=== PATIENT | female | born 2005 | race Caucasian/White ===

== ENCOUNTER 2024-11-28 12:30 | Outpatient (OUT) | payer OTHER, SELFPAY ==
--- OUTSIDE RECORDS SUMMARY | 2024-07-04 04:30 | XMS_ITS ---
Author Organization [facility] Address [address] [place] [address] Care Team Providers Care Retail Chain Store Area Supervisor Name Role Phone Kaushik Yao Primary Care Provider Arlene Dunn Unavailable [phone] REASON FOR VISIT FILLING Encounters Encounter Location Date Provider Diagnosis [facility] [address] [facility] [place] [address] 07/04/2024 Arlene Dunn Plan Of Treatment Next Appt Details Provider Name:Rose Espinosa , 01/24/2025 08:00:00 AM, [address], [place], [address], Progress Notes * MARY MATTSON LDOB: (19 yo F)Acc No.[id number]:07/04/2024 Patient: Diony MARY HEREDIA Provider: Baljinder Dunn :2005 A ge:18 Y S ex:Female Date:07/04/2024 Address:[address] [place], [place] [id number] Pcp:Kaushik Yao Subjective: * Chief Complaints: * 1 . FILLING. * Medical History: Objective: * Vitals: Assessment: Plan: * Treatment: * Images: * Electronic signature of Jadyn Dunn DMD on 11/28/2024 at 12:36 PM EDT Sign off status: Pending * Provider: Baljinder Dunn Date: 0 07/04/2024 Generated for Breanna amaro/Teddy/Eleanor on: 0 11/28/2024 12:36 PM EDT
--- OUTSIDE RECORDS SUMMARY | 2024-11-28 12:36 | XMS_ITS | Clinical Summary ---
Author Organization [facility] Address [address], [address] [place] [address] Care Team Providers Care Booking Officer Name Role Phone Unavailable Primary Care Provider Unavailabl e Allergies Active Allergy Reactions Criticality Noted Date Comments Amoxicillin Rash Low 05/31/2024 Medications acetaminophen (TYLENOL) 325 MG tablet Take 2 tablets by mouth every 6 hours as needed for Pain Active ibuprofen (ADVIL;MOTRIN) 400 MG tablet Take 0.5 tablets by mouth every 8 hours as needed for Pain or Fever 30 tablet 09/13/2018 Active ibuprofen (IBU) 800 MG tablet Take 1 tablet by mouth every 8 hours as needed for Pain 30 tablet 05/31/2024 Active Active Problems No known active problems Family History Medical History Relation Name Comments No Known Problems Father No Known Problems Mother Relation Name Status Comments Father Alive Mother Alive Social History Tobacco Use Types Packs/Day Years Used Date Smoking Tobacco: Never Smokeless Tobacco: Never Tobacco Cessation:Counseling Given: No AUDIT-C Answer Date Recorded Q1: How often do you have a drink containing alcohol? Never 05/31/2024 Q2: How many drinks containi ng alcohol do you have on a typical day when you are drinking? Patient does not drink Q3: How often do you have si x or more drinks on one occasion? Never 05/31/2024 Comments No Sex and Gender Information Value Date Recorded Sex Assigned at Not on file Legal Sex Female 3:23 PM EST Gender Identity Not on file Sexual Orientation Not on file Last Filed Vital Signs Vital Sign Reading Time Taken Comments Blood Pressure 116/69 05/31/2024 10:12 AM EST Pulse 71 05/31/2024 10:12 AM EST Temperature 36.6 C (97.8 F) 05/31/2024 10:12 AM EST Respiratory Rate 18 05/31/2024 10:12 AM EST Oxygen Saturation 99% 05/31/2024 10:12 AM EST Inhaled Oxygen Concentration - - Weight 53.6 kg (118 lb 3.2 oz) 09/13/2018 6:51 P M EDT Height 165.1 cm (5' 5 ) 09/13/2018 6:51 PM EDT Body Mass Index 19.67 09/13/2018 6:51 PM EDT Plan of Treatment Health Maintenance Due Date Last Done Comments Depression Screen 2015 Varicella vaccine (1 of 2 - 13+ 2-dose series) 07/14/2016 HIV screen 07/14/2018 HPV vaccine (1 - 3-dose series) 07/14/2018 Chlamydia/GC screen 2019 Meningococcal B vaccine (1 o f 2 - Standard) 2019 Hepatitis C screen 07/14/2021 DTaP/Tdap/Td vaccine (1 - Tdap) 07/14/2022 Hepatitis B vaccine (1 of 3 - 19+ 3-dose series) 07/14/2022 COVID-19 Vaccine (1 - 2023-2 5 season) 2023 Pap smear 07/14/2024 Flu vaccine (#1) 11/24/2024 Hepatitis A vaccine Aged Out No longe r eligible based on patient's age to complete this topic Hib vaccine Aged Out No longer eligi ble based on patient's age to complete this topic Meningococcal (ACWY) vaccine Aged Out No longer eligible based on patient's age to complete this topic Pneumococcal 0-49 years Vaccine Aged Out No longer eligible based on patient's age to complete this topic Polio vaccine Aged Out No longer elig ible based on patient's age to complete this topic Insurance [facility]
--- OUTSIDE RECORDS SUMMARY | 2024-11-28 12:36 | XMS_ITS | Clinical Summary ---
Author Organization [facility] Address [address] [place] [address] Care Team Providers Care Transfusion Aide Name Role Phone Abel Garcia MD Primary Care Provider [phone] Marina Camara FOOD OPERATIONS MANAGER Unavailable [phone] Allergies Active Allergy Reactions Criticality Noted Date Comments Amoxicillin Hives 09/07/2024 Morphine Rash 09/07/2024 Medications tretinoin (RETIN-A) 0.025 % gelIndications: Insulin resistance,Irre gular periods 1 application daily at bedtime. 7 Active Active Problems No known active problems Encounters Date Type Department Care Team Description 09/21/2024 Telephone Rheumatology [address] [place] [address] Renee Lorenzana DO 09/19/2024 2:10 PM EDT [facility] Rheumatology [address] [place] [address] Renee Lorenzana DO Rash and nonspecific skin eruption (Primary Dx); Positive SON (antinuclear antibody) 09/19/2024 Travel 09/14/2024 Patient [facility] HB-[address] [place] [address] Marina Collado RPh At your next appointment, choose [facility]. 09/07/2024 1:10 PM EDT Office Visit Rheumatology [address] [place] [address] Renee Lorenzana DO Rash and nonspecific skin eruption (Primary Dx); Positive SON (antinuclear antibody) 09/07/2024 Telephone Rheumatology [address] [place] [address] Renee Lorenzana DO 09/07/2024 Travel from Last 3 Months Family History Medical History Relation Comments Rheumatologic disease No Family History Social History Tobacco Use Types Packs/Day Years Used Date Smoking Tobacco: Passive Smo ke Exposure - Never Smoker Comments:mother smokes outsi de PHQ-2 Answer Date Recorded PHQ-2 score 1 09/19/2024 Area Deprivation Index Answer Date Darrius rded National Score (1-100), lower number is lower ri sk 76 09/07/2024 State Score (1-10), lower number is lower risk 6 09/07/2024 Data from: https://www.neigh borhoodatlas.medicine.[facility]/. Last address used for calculation [address] [facility] 09/07/2024 Comments Unknown Sex and Gender Information Value Date Recorded Sex Assigned at Not on file Legal Sex Female 4:59 PM EST Gender Identity Not on file Sexual Orientation Not on file Last Filed Vital Signs Vital Sign Reading Time Taken Comments Blood Pressure 105/65 09/07/2024 1:13 PM EDT Pulse 76 09/07/2024 1:13 PM EDT Temperature 36.8 C (98.2 F) 03/12/2017 10:12 AM EST Respiratory Rate - - Oxygen Saturation - - Inhaled Oxygen Concentration - - Weight 87.6 kg (193 lb 1.6 oz) 09/07/2024 1:13 P M EDT Height 165.2 cm (5' 5.04 ) 09/07/2024 1:13 PM ED T Body Mass Index 32.09 09/07/2024 1:13 PM EDT Plan of Treatment Health Maintenance Due Date Last Done Comments Peds To Adult Transition Ini tial Discussion 2015 HPV Vaccine (2 - 2-dose series) 06/18/2016 6 Peds To Adult Transition Nayeli ual Assessment 07/14/2017 Meningococcal B Vaccine (1 o f 2 - Standard) 2019 Anxiety Screening 07/14/2021 Chlamydia Screening (18-24) 07/14/2021 Depression Screening 07/14/2021 GC (Gonorrhea) Screening (18-24) 07/14/2021 HIV Screening 07/14/2021 Hepatitis C Screening 07/14/2021 Cervical Cancer Screening 07/14/2024 Influenza Vaccine (#1) 2024 DTaP,Tdap,Td Vaccine (4 - Td or Tdap) 12/16/2025 12/17/2015, 11/13/2005, 01/20/2005 Hepatitis B Vaccine Completed 11/13/2005, 01/20/2005, 2003 Procedures Procedure Name Priority Date/Time Associated Diagnosis Comments EXTERNAL LAB 10/11/2024 2:47 PM EDT CHROMATIN ANTIBODY Routine 09/07/2024 1: 59 PM EDT Rash and nonspecific skin eruption Positive SON (antinuclear antibody) RIBOSOMAL MASTER WELDER AB BLD Routine 09/07/2024 1:59 PM EDT Rash and nonspecific skin eruption Positive SON (antinuclear antibody) DENITA-1 AB Routine 09/07/2024 1:59 PM EDT Rash and nonspecific skin eruption Positive SON (antinuclear antibody) SCLERODERMA IGG AB Routine 09/07/2024 1: 59 PM EDT Rash and nonspecific skin eruption Positive SON (antinuclear antibody) ANTI-CENTROMERE AB Routine 09/07/2024 1: 59 PM EDT Rash and nonspecific skin eruption Positive SON (antinuclear antibody) ANTI SSB BLD Routine 09/07/2024 1:59 PM EDT Rash and nonspecific skin eruption Positive SON (antinuclear antibody) ANTI SSA BLD Routine 09/07/2024 1:59 PM EDT Rash and nonspecific skin eruption Positive SON (antinuclear antibody) MASTER WELDER ANTIBODY BLOOD Routine 09/07/2024 1: 59 PM EDT Rash and nonspecific skin eruption Positive SON (antinuclear antibody) SALGADO IGG AB Routine 09/07/2024 1:59 PM EDT Rash and nonspecific skin eruption Positive SON (antinuclear antibody) SED RATE WESTERGREN Routine 09/07/2024 1 :59 PM EDT Rash and nonspecific skin eruption Positive SON (antinuclear antibody) C-REACTIVE PROTEIN (CRP) Routine 09/07/2024 1:59 PM EDT Rash and nonspecific skin eruption Positive SON (antinuclear antibody) C4 COMPLEMENT BLD Routine 09/07/2024 1:5 9 PM EDT Rash and nonspecific skin eruption Positive SON (antinuclear antibody) C3 COMPLEMENT BLD Routine 09/07/2024 1:5 9 PM EDT Rash and nonspecific skin eruption Positive SON (antinuclear antibody) DNA ANTIBODY DS BLD Routine 09/07/2024 1 :59 PM EDT Rash and nonspecific skin eruption Positive SNO (antinuclear antibody) ANTI DEREK ID Routine 09/07/2024 1:59 PM EDT Rash and nonspecific skin eruption Positive SON (antinuclear antibody) from Last 3 Months Results * EXTERNAL LAB (10/11/2024 2:47 PM EDT) us External Provider PA-C LABORATORY Final Res ult * CHROMATIN ANTIBODY (09/07/2024 1:59 PM EDT) CHROMATIN AB QUAL Negative Negative 09/08/2024 11:35 AM EDT [facility] Chromatin Antibody <0.2 <1.0 AI 09/08/2024 11:35 AM EDT [facility] Comment:Test Methodology: Mu ltiplex flow immunoassay. Blood BLOOD SPECIMEN / Unknown Venipuncture / Unknown 09/07/2024 1:59 PM EDT 09/07/2024 2:00 PM EDT Narrative [facility] - 09/08/2024 11:35 AM EDT Anti-chromatin antibody is used as an aid in diagnosis of systemic lupus erythematosus. Clinical correlation is required. Test Methodology: Multiplex flow immunoassay. us Renee Lorenzana DO LABORATORY Final Resul t [facility] [address] [place] [address], [place] * RIBOSOMAL MASTER WELDER AB BLD (09/07/2024 1:59 PM EDT) Ribosomal MASTER WELDER Qualitative Negative Negative 09/08/2024 11:35 AM EDT [facility] Comment: Anti-Ribosomal RNA (Ribosomal P) antibody is used as an aid in diagnosis of systemic autoimmune diseases especially systemic lupus erythematosus and mixed connective tissue disease. Cross-reactivity with Anti-salgado antibody is not uncommon. Clinical correlation is required. Test Methodology: Multiplex flow immunoassay. Ribosomal MASTER WELDER <0.2 <1.0 AI 09/08/2024 11:35 AM EDT [facility] Blood BLOOD SPECIMEN / Unknown Venipuncture / Unknown 09/07/2024 1:59 PM EDT 09/07/2024 2:00 PM EDT Renee Lorenzana DO LABORATORY Final Resul t [facility] [place] [address], [place] * (ABNORMAL) MASTER WELDER ANTIBODY BLOOD (09/07/2024 1:59 PM EDT) MASTER WELDER Antibody QUAL Positive(A ) Negative 09/08/2024 11:35 AM EDT [facility] MASTER WELDER Antibody 1.1(H) <1.0 AI 09/08/2024 11:35 AM EDT [facility] Blood BLOOD SPECIMEN / Unknown Venipuncture / Unknown 09/07/2024 1:59 PM EDT 09/07/2024 2:00 PM EDT Narrative [facility] - 09/08/2024 11:35 AM EDT Anti-MASTER WELDER antibody is used as an aid in diagnosis of systemic autoimmune diseases especially systemic lupus erythematosus and mixed connective tissue disease. Cross-reactivity with Anti-salgado antibody is not uncommon. Clinical correlation is required. Test Methodology: Multiplex flow immunoassay. Renee Lorenzana DO LABORATORY Final Resul t Performing Organization Address [facility] Co de Phone Number [facility] [address] [place] [address], [place] * SALGADO IGG AB (09/07/2024 1:59 PM EDT) SM Antibody Qual Negative Negative 09/09/19 11:35 AM EDT [facility] Comment: Anti-Sm (Salgado) antibody is used as an aid in diagnosis of systemic lupus erythematosus and its presence is associated with renal disease. A negative result cannot rule out systemic lupus erythematosus. Clinical correlation is required. Test Methodology: Multiplex flow immunoassay. SM Antibody <0.2 <1.0 AI 09/08/2024 11:35 AM EDT [facility] Blood BLOOD SPECIMEN / Unknown Venipuncture / Unknown 09/07/2024 1:59 PM EDT 09/07/2024 2:00 PM EDT Renee Lorenzana DO LABORATORY Final Resul t Performing Organization Address [facility] de Phone Number [facility] [address] [place] [address], [place] * SEDIMENTATION RATE, WESTERGREN (09/07/2024 1:59 PM EDT) Sed Rate, Westergren 8 0 - 20 mm/hr 09/07/2024 11:25 PM EDT [facility] Blood BLOOD SPECIMEN / Unknown Venipuncture / Unknown 09/07/2024 1:59 PM EDT 09/07/2024 2:00 PM EDT Renee Lorenzana DO LABORATORY Final Resul t Performing Organization Address City/[facility] Co de Phone Number [facility] [address] [place] [phone], [place] * SCLERODERMA IGG AB (09/07/2024 1:59 PM EDT) Scleroderma Ab Qual Negative Negative 09/08/2024 11:35 AM EDT [facility] Scleroderma Ab, IgG <0.2 <1.0 AI 09/08/2024 11:35 AM EDT [facility] Comment:Scl-70/Scleroderma a ntibody test is used as an aid in diagnosis of systemic sclerosis especially the diffuse cutaneous form. A negative result cannot rule out systemic sclerosis. The final interpretation should consider clinical picture and other test results such as anti-centromere antibody. Test Methodology: Multiplex flow immunoassay. Blood BLOOD SPECIMEN / Unknown Venipuncture / Unknown 09/07/2024 1:59 PM EDT 09/07/2024 2:00 PM EDT [employer] DO LABORATORY Final Resul t Performing Organization Address [facility] Phone Number [facility] [address] [place], [place] [id number], [place] * DENITA-1 AB (09/07/2024 1:59 PM EDT) DENITA 1 ANTIBODY QUAL Negative Negative 2024 11:35 AM EDT [facility] Comment: Anti-DENITA-1 antibody is used as an aid in diagnosis of polymyositis and dermatomyositis especially with pulmonary involvement. A negative result cannot rule out polymyositis or dermatomyositis. Clinical correlation is required. Test Methodology: Multiplex flow immunoassay. Denita 1 Antibody <0.2 <1.0 AI 09/08/2024 11:35 AM EDT [facility] Blood BLOOD SPECIMEN / Unknown Venipuncture / Unknown 09/07/2024 1:59 PM EDT 09/07/2024 2:00 PM EDT [employer] DO LABORATORY Final Resul t Performing Organization Address [facility] Co de Phone Number [facility] [address] [place] [place] [phone], [place] * DNA ANTIBODY DS BLD (09/07/2024 1:59 PM EDT) DNA Antibody 33 <=200 IU/mL 09/08/2024 3:12 PM EDT [facility] Comment: Negative: <200 IU/mL Equivocal: 201-300 IU/mL Moderate Positive: 301-800 IU/mL Strong Positive: >801 IU/mL DNA Antibody Qualitative Interpretation Negative Negative 09/08/2024 3:12 PM EDT [facility] Blood BLOOD SPECIMEN / Unknown Venipuncture / Unknown 09/07/2024 1:59 PM EDT 09/07/2024 2:00 PM EDT Narrative [facility] - 09/08/2024 3:12 PM EDT This test is used as an aid in diagnosis of systemic lupus erythematous in patients with positive anti-nuclear antibody (SON) test result. It may also be used for prognostication and monitoring response to treatment where clinically warranted. Results were obtained with the QUANTA Lite dsDNA JOHN. Double-stranded DNA values obtained with different manufacturers' assay methods should not be used interchangeably. Renee Lorenzana DO LABORATORY Final Resul t Performing Organization Address City/[facility]/ZIP Co de Phone Number [facility] [address] [place] [address], [place] * C4 COMPLEMENT (09/07/2024 1:59 PM EDT) [facility] Signature C4 Complement 25 13 - 46 mg/dL 09/08/2024 5:28 PM EDT [facility] Blood BLOOD SPECIMEN / Unknown Venipuncture / Unknown 09/07/2024 1:59 PM EDT 09/07/2024 2:00 PM EDT Renee Lorenzana DO LABORATORY Final Resul t Performing Organization Address [facility]/ZIP Co de Phone Number [facility] [address] [place] [address], [place] * C3 COMPLEMENT (09/07/2024 1:59 PM EDT) C3 Complement 150 86 - 166 mg/dL 09/08/2024 5:28 PM EDT [facility] Blood BLOOD SPECIMEN / Unknown Venipuncture / Unknown 09/07/2024 1:59 PM EDT 09/07/2024 2:00 PM EDT Renee Locnatalie DO LABORATORY Final Resul t Performing Organization Address City/[facility]/ZIP Co de Phone Number [facility] [address] [place] [address], * C-REACTIVE PROTEIN (09/07/2024 1:59 PM EDT) CRP 0.5 <0.9 mg/dL 09/08/2024 5:28 PM EDT [facility] Blood BLOOD SPECIMEN / Unknown Venipuncture / Unknown 09/07/2024 1:59 PM EDT 09/07/2024 2:00 PM EDT Renee Salomón DO LABORATORY Final Resul t Performing Organization Address [facility] de Phone Number [facility] [address] [place] [address], * ANTI-CENTROMERE AB (09/07/2024 1:59 PM EDT) CENTROMERE AB QUAL Negative Negative 09/08/2024 11:35 AM EDT [facility] Centromere Ab <0.2 <1.0 AI 09/08/2024 11:35 AM EDT [facility] Comment: Anti-centromere antibody is used as in aid in diagnosis of systemic sclerosis. Clinical correlation is required. Test Methodology: Multiplex flow immunoassay. Blood BLOOD SPECIMEN / Unknown Venipuncture / Unknown 09/07/2024 1:59 PM EDT 09/07/2024 2:00 PM EDT Renee Lorenzana DO LABORATORY Final Resul t Performing Organization Address City/[facility] Co de Phone Number [facility] [address] [place] [phone], [place] * ANTI SSB BLD (09/07/2024 1:59 PM EDT) SSB Antibody <0.2 <1.0 AI 09/08/2024 11:35 AM EDT [facility] Comment: Anti-SSB (anti-La) antibody is used as an aid in diagnosis of a variety of systemic autoimmune diseases, especially for Sjogren's syndrome and systemic lupus erythematosus. Clinical correlation is required. Test Methodology: Multiplex flow immunoassay. SSB Antibody Qual Negative Negative 09/08/2024 11:35 AM EDT [facility] Blood BLOOD SPECIMEN / Unknown Venipuncture / Unknown 09/07/2024 1:59 PM EDT 09/07/2024 2:00 PM EDT Renee Salomón DO LABORATORY Final Resul t Performing Organization Address [facility] Co de Phone Number [facility] [address] [place] [place] [phone], [place] * ANTI SSA BLD (09/07/2024 1:59 PM EDT) SSA Antibody Qual Negative Negative 09/08/2024 11:35 AM EDT [facility] SSA Antibody IgG <0.2 <1.0 AI 09/08/2024 11:35 AM EDT [facility] Comment:Test Methodology: Mu ltiplex flow immunoassay. Blood BLOOD SPECIMEN / Unknown Venipuncture / Unknown 09/07/2024 1:59 PM EDT 09/07/2024 2:00 PM EDT Narrative [facility] - 09/08/2024 11:35 AM EDT Anti-SSA (anti-Ro) antibody is used as an aid in diagnosis of a variety of systemic autoimmune diseases, Sjogren's syndrome among others. Clinical correlation is required. Test Methodology: Multiplex flow immunoassay. Renee LocAvidbots DO LABORATORY Final Resul t Performing Organization Address [facility] Co de Phone Number [facility] [address] [phone] [place] [address], [place] from Last 3 Months Insurance [facility] MEDICAID Care Teams Transfusion Aide Relationship Specialty Start Date End Date Abel Garcia MD [address] [place] [address] PCP - General Pediatrics 03/12/17 Marina Camara, FOOD OPERATIONS MANAGER [address] [address] Dermatology 08/31/24
--- OUTSIDE RECORDS SUMMARY | 2024-11-28 12:36 | XMS_ITS | Encounter Summary ---
Author Organization [facility] Address [address] [place] [address] Care Team Providers Care Market Maker Name Role Phone Unallocated, [facility] Encounter Details Date Type Department Care Team (Late Contact Info) Description 02/02/2023 Abstract KAYLAN JONAS [address] [facility] [address] [place] [address] Ariane Tucker DO [address] [facility] [address] [place] [address] Social History Tobacco Use Types Packs/Day Years Used Date Smoking Tobacco: Never Assessed Comments Unknown Sex and Gender Information Value Date Recorded Sex Assigned at Female 02/03/2023 10:08 PM EDT Legal Sex Female 10:43 AM EDT Gender Identity Female 02/03/2023 10:08 PM EDT Sexual Orientation Straight 02/03/2023 10 :08 PM EDT documented as of this encounter Plan of Treatment Upcoming Encounters Date Type Department Care Team (Late Contact Info) Description 12/18/2024 8:40 AM EDT Office Visit KAYLAN JONAS [address] [place] [id number] Tabitha Benítez PA [address] [place], [place] [id number] documented as of this encounter Visit Diagnoses Not on filedocumented in this encounter Care Teams Market Maker Relationship Specialty Start Date End Date Unallocated, [place] [address] PCP - General 02/03/23 documented as of this encounter
--- OUTSIDE RECORDS SUMMARY | 2024-11-28 12:36 | XMS_ITS | Clinical Summary ---
Author Organization [facility] Address [address] [place] [address] Care Team Providers Care Android Developer Name Role Phone Unallocated, Noms Provider Primary Care Provi chelsea Allergies Active Allergy Reactions Criticality Noted Date Comments Amoxicillin Hives,Rash High 02/03/2023 Other Reaction(s): Hives Morphine Rash Low 09/07/2024 Medications Zoloft 25 MG tablet Take 50 mg by mouth 11/01/2024 Active busPIRone (Buspar) 5 MG tablet Take 5 mg by mouth 11/01/2024 Active Active Problems No known active problems Encounters Date Type Department Care Team Description 11/08/2024 2:10 PM EDT Consult [facility] [address] [place] [address] Pb Robison DO Pre-op examination; Pelvic pain; Bilateral ovarian cysts 10/09/2024 2:30 PM EDT Ancillary Procedure [facility] [address] [place] [address] Pelvic pain in female 10/02/2024 2:25 PM EDT Office Visit [facility] [address] [place] [address] Marina Camara APRN-BINH Idiopathic urticaria (Primary Dx) 10/02/2024 Bamboo flowsheet [facility] [address] [place] [address] Marina Camara APRN-BINH 10/02/2024 Travel 09/28/2024 8:40 AM EDT Office Visit [facility] [address] [place] [phone] Pb Robison, Pelvic pain; Pelvic pain in female 09/28/2024 External Result Encounter [facility] External Department Unsolicited Pb Robison, DO 09/28/2024 Bamboo flowsheet [facility] [address] [place] [address] Pb Robison, DO 09/20/2024 10:30 AM EDT Office Visit [facility] [place] [facility] [address] [place] [phone] Ariane Tucker, Encounter for gynecological examination without abnormal finding (Primary Dx); Screening for malignant neoplasm of cervix; PCOS (polycystic ovarian syndrome); Irregular menses 09/20/2024 Bamboo flowsheet [facility] [place] [facility] [address] [place] [phone] Ariane Tucker, 09/20/2024 Travel 09/04/2024 Telephone [facility] [place] [facility] [address] [place] [phone] Leesa Lagos LPN Results 08/29/2024 2:10 PM EDT Office Visit [facility] [place] [facility] [address] [place] [phone] Yenni Puga PA Rash and other nonspecific skin eruption (Primary Dx); Encounter for removal of sutures 08/29/2024 Travel from Last 3 Months Family History Medical History Relation Name Comments Diabetes Maternal Grandmother Gaurav Mather Hypertension Maternal Grandmother Gaurav Mather Stroke Mother's Brother Wolfgang Mather Stroke Mother's Sister Arlyn Knowles Breast cancer Paternal Grandmother Josiane Meyer Migraines Sister Loni Davilagomery Relation Name Status Comments Maternal Grandmother Gaurav Mather Mother's Brother Wolfgang Mather Mother's Sister Arlyn Benson Paternal Grandmother Josiane Leporati Alive Sister Loni Garcia Alive Social History Tobacco Use Types Packs/Day Years Used Date Smoking Tobacco: Never Smokeless Tobacco: Never Comments No Sex and Gender Information Value Date Recorded Sex Assigned at Female 02/03/2023 10:08 PM EDT Legal Sex Female 10:43 AM EDT Gender Identity Female 02/03/2023 10:08 PM EDT Sexual Orientation Straight 02/03/2023 10 :08 PM EDT Last Filed Vital Signs Vital Sign Reading Time Taken Comments Blood Pressure 118/72 11/08/2024 2:05 PM EDT Pulse - - Temperature - - Respiratory Rate - - Oxygen Saturation - - Inhaled Oxygen Concentration - - Weight 89.4 kg (197 lb) 11/08/2024 2:05 PM EDT Height 165.1 cm (5' 5 ) 11/08/2024 2:05 PM EDT Body Mass Index 32.78 11/08/2024 2:05 PM EDT Plan of Treatment Upcoming Encounters Date Type Department Care Team (Late st Contact Info) Description 12/18/2024 8:40 AM EDT Office Visit [facility] [address] [place] [address] Tabitha Benítez PA [address] [place] [address] Health Maintenance Due Date Last Done Comments Influenza Vaccine (#1) 2024 Procedures Procedure Name Priority Date/Time Associated Diagnosis Comments US PELVIC COMPLETE W/ TV Routine 10/09/2024 3:13 PM EDT Pelvic pain in female RECURRENT VAGINITIS (HTRX) Routine 09/28/2024 4:06 PM EDT POCT , URINE Routine 09/28/2024 12:19 PM EDT Pelvic pain in female POCT URINALYSIS DIPSTICK Routine 09/28/2024 12:19 PM EDT Pelvic pain in female IGP, RFX APTIMA HPV ASCU Routine 09/20/2024 12:00 AM EDT Screening for malignant neoplasm of cervix SON BY IFA, REFLEX TO TITER AND PATTERN Routine 08/30/2024 1:04 PM EDT HERNAN STAINING PATTERNS Routine 08/29/2024 2:50 PM EDT SON BY IFA, REFLEX TO TITER AND PATTERN Routine 08/29/2024 2:50 PM EDT Rash and other nonspecific skin eruption from Last 3 Months Results * US Pelvis w/ TV (10/09/2024 3:13 PM EDT) Anatomical Region Laterality Modality Pelvis Ultrasound 10/10/2024 8:14 AM EDT Narrative 10/10/2024 8:14 AM EDT EXAM: US PELVIC COMPLETE W/ TV HISTORY: Pelvic pain, PCOS, irregular length between periods. COMPARISON: None available. TECHNIQUE: Two-dimensional transabdominal grayscale ultrasound imaging of the pelvis was performed. Color flow Doppler imaging of the ovaries was also performed. Transvaginal was performed. FINDINGS: UTERUS 6.1 x 3.2 x 4.7 cm The uterus is anteverted in position and demonstrates a normal, homogeneous echotexture. ENDOMETRIUM 0.9 cm The endometrium demonstrates a normal, homogeneous echotexture. RIGHT OVARY 4.0 x 2.5 x 3.9 cm The right ovary demonstrates a normal echotexture with follicles. The ovarian volume is 20 mL. There is normal color Doppler flow. LEFT OVARY The left ovary is not visualized. No fluid is present within the cul-de-sac. IMPRESSION: 1. Unremarkable ultrasound of the pelvis. 2. Normal color Doppler flow within the right ovary, the left ovary was not visualized. Interpreted by: Electronically signed by NAPOLEON GARRIDO II, MD, PHD at 10-Oct-2024 08:13:26 AM [facility] Procedure Note Napoleon Garrido MD - 10/10/2024 EXAM: US PELVIC COMPLETE W/ TV HISTORY: Pelvic pain, PCOS, irregular length between periods. COMPARISON: None available. TECHNIQUE: Two-dimensional transabdominal grayscale ultrasound imaging ofthe pelvis was performed. Color flow Doppler imaging of the ovaries wasalso performed. Transvaginal was performed. FINDINGS: UTERUS 6.1 x 3.2 x 4.7 cm The uterus is anteverted in position and demonstrates a normal,homogeneous echotexture. ENDOMETRIUM 0.9 cm The endometrium demonstrates a normal, homogeneous echotexture. RIGHT OVARY 4.0 x 2.5 x 3.9 cm The right ovary demonstrates a normal echotexture with follicles. Theovarian volume is 20 mL. There is normal color Doppler flow. LEFT OVARY The left ovary is not visualized. No fluid is present within the cul-de-sac. IMPRESSION: 1. Unremarkable ultrasound of the pelvis. 2. Normal color Doppler flow within the right ovary, the left ovary wasnot visualized. Interpreted by: Electronically signed by NAPOLEON GARRIDO II, MD, PHD 08:13:26 AM [facility] us Pb Ricki DO [facility] US PROCEDURES Final Result * RECURRENT VAGINITIS (HTRX) (09/28/2024 4:06 PM EDT) Pathologist [facility] ATOPOBIUM VAGINAE 0.000 19.961 - 24.689 ppm 09/29/2024 6:34 AM EDT [facility] ATOPOBIUM VAGINAE Not Detected 19.961 - 24.689 ppm 09/29/2024 6:34 AM EDT [facility] BVAB 2,3 (BACTERIAL VAGINOSIS ASSOCIATED BACTERIA 2, 3); MOBILUNCUS SPP 0.000 19.961 - 24.689 ppm 09/29/2024 6:34 AM EDT [facility] BVAB 2,3 (BACTERIAL VAGINOSIS ASSOCIATED BACTERIA 2, 3); MOBILUNCUS SPP Not Detected 19.961 - 24.689 ppm 09/29/2024 6:34 AM EDT [facility] ISMAEL ALBICANS, PARAPSILOSIS, TROPICALIS 0.000 19.961 - 30.770 ppm 09/29/2024 6:34 AM EDT [facility] ISMAEL ALBICANS, PARAPSILOSIS, TROPICALIS Not Detected 19.961 - 30.770 ppm 09/29/2024 6:34 AM EDT [facility] ISMAEL GLABRATA 0.000 23.000 - 32.138 ppm 09/29/2024 6:34 AM EDT [facility] ISMAEL GLABRATA Not Detected 23.000 - 32.138 ppm 09/29/2024 6:34 AM EDT [facility] ISMAEL KRUSEI 0.000 23.000 - 32.271 ppm 09/29/2024 6:34 AM EDT [facility] ISMAEL KRUSEI Not Detected 23.000 - 32.271 ppm 09/29/2024 6:34 AM EDT [facility] CHLAMYDIA TRACHOMATIS 0.000 23.000 - 31.467 ppm 09/29/2024 6:34 AM EDT [facility] CHLAMYDIA TRACHOMATIS Not Detected 23.000 - 31.467 ppm 09/29/2024 6:34 AM EDT [facility] GARDNERELLA VAGINALIS 0.000 19.961 - 24.689 ppm 09/29/2024 6:34 AM EDT [facility] GARDNERELLA VAGINALIS Not Detected 19.961 - 24.689 ppm 09/29/2024 6:34 AM EDT [facility] MEGASPHAERA (TYPES 1, 2) 0.000 19.961 - 24.689 ppm 09/29/2024 6:34 AM EDT [facility] MEGASPHAERA (TYPES 1, 2) Not Detected 19.961 - 24.689 ppm 09/29/2024 6:34 AM EDT [facility] NEISSERIA GONORRHOEAE 0.000 23.000 - 32.117 ppm 09/29/2024 6:34 AM EDT [facility] NEISSERIA GONORRHOEAE Not Detected 23.000 - 32.117 ppm 09/29/2024 6:34 AM EDT [facility] TRICHOMONAS VAGINALIS 0.000 23.000 - 32.119 ppm 09/29/2024 6:34 AM EDT [facility] TRICHOMONAS VAGINALIS Not Detected 23.000 - 32.119 ppm 09/29/2024 6:34 AM EDT [facility] MYCOPLASMA GENITALIUM 0.000 19.961 - 24.689 ppm 09/29/2024 6:34 AM EDT [facility] MYCOPLASMA GENITALIUM Not Detected 19.961 - 24.689 ppm 09/29/2024 6:34 AM EDT [facility] 09/28/2024 4:06 PM EDT 09/29/2024 1:33 AM EDT VUELOGICo DO LAB BLOOD ORDERABLES Final Resul t [facility] [address] [place] [address] * POCT , urine manually resulted (09/28/2024 12:19 PM EDT) Preg Test, Ur Negative Negative Urine 09/28/2024 12:1 9 PM EDT FPW Entepriseso DO POINT OF CARE TEST ENTER/EDIT OR DERABLES Final Result * POCT urinalysis dipstick manually resulted (09/28/2024 12:19 PM EDT) Color, UA Yellow Clarity, UA Clear Glucose, UA Negative Negative - 2000(110) ++++ mg/dL Bilirubin, UA Negative Negative - 4(70) +++ mg/dL Ketones, UA Negative Negative - 160(16) ++++ mg/dL Spec Grav, UA 1.020 1 - 1.03 Blood, UA Negative Negative - 50 Michael/mcL pH, UA 5.5 5 - 9 Protein, UA Negative Negative - 1999(20) ++++ mg/dL Urobilinogen, UA 1.0 0.2 - 12 mg/dL Leukocytes, UA Negative Negative - 500+++ Anel/mcL Nitrite, UA Negative Negative - Positive Urine 09/28/2024 12:1 9 PM EDT Pb Robison DO POINT OF CARE TEST ENTER/EDIT OR DERABLES Final Result * IGP, RFX APTIMA HPV ASCU (09/20/2024 12:00 AM EDT) Diagnosis: Comment [facility] Comment:NEGATIVE FOR INTRAEP ITHELIAL LESION OR MALIGNANCY. Specimen Adequacy: Comment [facility] Comment: Satisfactory for evaluation. Endocervical and/or squamous metaplastic cells (endocervical component) are present. Clinician Provided ICD10: Comment [facility] Comment:Z12.4 Performed By: Comment [facility] Comment:Socrates Howard tologceferino (ASCP) Cyto Comments . [facility] Note: Comment [facility] Comment: The Pap smear is a screening test designed to aid in the detection of premalignant and malignant conditions of the uterine cervix. It is not a diagnostic procedure and should not be used as the sole means of detecting cervical cancer. Both false-positive and false-negative reports do occur. Test Methodology: Comment [facility] Comment: This liquid based ThinPrep(R) pap test was screened with the use of an image guided system. . Comment [facility] Comment: The HPV DNA reflex criteria were not met with this specimen result therefore, no HPV testing was performed. 09/20/2024 09/21/2024 Narrative [facility] - 09/24/2024 3:06 PM EDT [facility]formed at: [facility] [address] [place] [id number] [employer] Supervisor: Clifton Beatty MD, Phone: [phone] Performed at: 02 - [address] [id number] [employer] Supervisor: Preethi Espinoza MD, Phone: [phone] Specimen Comment: No. of containers..01 ThinPrep Vial us Ariane Tcuker DO LAB BLOOD ORDERABLES Final Result [facility] * SON by IFA, Reflex to Titer and Pattern (08/30/2024 1:04 PM EDT) Only the most recent of2 resultswithin the time period is included. SON BY IFA RFX TITER/PATTERN Negative [facility] Comment: Negative <1:80 Borderline 1:80 Positive >1:80 ICAP nomenclature: AC-0 For more information about Hep-2 cell patterns use ANApatterns.org, the official website for the International Consensus on Antinuclear Antibody (SON) Patterns (ICAP). 08/30/2024 1:04 PM EDT 08/30/2024 Comment:BLOOD, VENOUS Narrative [facility] - 09/01/2024 8:07 AM EDT Performed at: 01 - [facility] [address] [id number] [employer] Supervisor: Arvind Patel PhD, Phone: [phone] Marina Camara MUSEUM SECURITY CHIEF-METER REPAIRER LAB BLOOD ORDERABLES F inal Result [facility] * (ABNORMAL) HERNAN STAINING PATTERNS (08/29/2024 2:50 PM EDT) HOMOGENEOUS PATTERN 1:160(H) [facility] Comment:ICAP nomenclature: A C-1 NOTE: Comment [facility] Comment: Pattern Potential Disease Association Homogeneous Systemic Lupus Erythematosus, Drug Induced Systemic Lupus Erythematosus, Chronic Autoimmune hepatitis, Juvenile Idiopathic Arthritis Speckled Sjogren Syndrome, Systemic Lupus Erythematosus, Subacute Cutaneous Lupus, Lupus, Congenital Heart Block, Mixed Connective Tissue Disease, Scleroderma-diffuse, Scleroderma-Autoimmune Myositis Overlap Syndrome, Systemic Lupus Fbhvupupnlyhy-Swxqtkgvaub-Xlupxkwyct Myositis Overlap Syndrome, Systemic Autoimmune Rheumatic Disease, Undifferentiated Connective Tissue Disease Nucleolar Systemic Sclerosis, Scleroderma-Autoimmune Myositis Overlap Syndrome, Sjogren Syndrome, Raynaud phenomenon, Pulmonary Arterial Hypertension, Systemic Autoimmune Rheumatic Disease, Cancer Centromere Scleroderma-CREST, Limited Cutaneous SSc, Raynaud's Phenomenon, Primary Biliary Cholangitis Nuclear Dot Primary Biliary Cholangitis Nuclear Primary Biliary Cholangitis, Autoimmune Membrane Hepatitis/Liver disease, Systemic Autoimmune Rheumatic Disease, Autoimmune Cytopenias, Linear Scleroderma, Antiphospholipid Syndrome 08/29/2024 2:50 PM EDT 08/29/2024 Narrative [facility] - 08/31/2024 2:07 PM EDT Performed at: 01 - [facility] [address] [id number] [employer] Supervisor: Arvind Patel PhD, Phone: [phone] us Marina Camara MUSEUM SECURITY CHIEF-METER REPAIRER LAB BLOOD ORDERABLES F inal Result [facility] from Last 3 Months Insurance [employer] Care Teams Android Developer Relationship Specialty Start Date End Date Unallocated, Noms Provider, [address] [place] [address] PCP - General 02/03/23
--- OUTSIDE RECORDS SUMMARY | 2024-11-28 12:36 | XMS_ITS | Clinical Summary ---
Author Organization [facility] Address [address] [place] [address] Care Team Providers Care Environmental Control Administrator Name Role Phone Arabella Awad [facility] Primary Care Provide r Allergies Active Allergy Reactions Criticality Noted Date Comments Amoxicillin Hives Medium 02/03/2023 Other Reaction(s): Hives Medications No known medications Active Problems No known active problems Social History Tobacco Use Types Packs/Day Years Used Date Smoking Tobacco: Never Smokeless Tobacco: Never Tobacco Cessation:Counseling Given: Not Answered Alcohol Use Standard Drinks/Week Comments Never 0 (1 standard drink = 0.6 oz pur e alcohol) Comments Unknown Sex and Gender Information Value Date Recorded Sex Assigned at Not on file Legal Sex Female 11:44 AM EDT Gender Identity Not on file Sexual Orientation Not on file Last Filed Vital Signs Vital Sign Reading Time Taken Comments Blood Pressure - - Pulse - - Temperature 36.8 C (98.2 F) 03/06/2024 10:15 AM EST Respiratory Rate - - Oxygen Saturation - - Inhaled Oxygen Concentration - - Weight 85.3 kg (188 lb 1.6 oz) 03/06/2024 10:15 AM EST Height 165.1 cm (5' 5 ) 03/06/2024 10:15 AM EST Body Mass Index 31.3 03/06/2024 10:15 AM EST Plan of Treatment Health Maintenance Due Date Last Done Comments Chlamydia Screening 2003 Tetanus: Every 10yrs 2003 Wellness Visit 07/14/2006 Depression Screening/Follow- Up (PHQ-2/9) 2015 HIV Screening 07/14/2018 HPV Vaccines (1 - 3-dose series) 07/14/2018 Hepatitis C Screening 07/14/2021 COVID-19 Vaccine (2023-2 5 season) 2023 Pap Smear 07/14/2024 Influenza Vaccine (#1) 2024 Pneumococcal Vaccine: Ped or At-Risk Aged Out No longer eligible b ased on patient's age to complete this topic Insurance [employer] Care Teams Environmental Control Administrator Relationship Specialty Start Date End Date Arabella Awad CNP [address] [place] [id number] PCP - General Nurse Practitioner 02/15/24
--- OUTSIDE RECORDS SUMMARY | 2024-11-28 12:36 | XMS_ITS | Encounter Summary ---
Author Organization [facility] Address [address] [place] [address] Care Team Providers Care Health Care Marketing Manager Name Role Phone Abel Garcia MD Primary Care Provider [phone] Marina Camara BAG BUILDER Unavailable [phone] Source Comments In the event this information is protected by the Federal Confidentiality of Alcohol and Drug AbusePatient Records regulations: The Federal rules restrict any use of the information to criminally investigate or prosecute any alcohol or drug abuse patient.[facility] Encounter Details Date Type Department Care Team (Late st Contact Info) Description 09/14/2024 Patient [facility] [place] [address] Marina Collado RPh At your next appointment, choose [facility]. Social History Tobacco Use Types Packs/Day Years Used Date Smoking Tobacco: Passive Smo ke Exposure - Never Smoker Comments:mother smokes outsi de Area Deprivation Index Answer Date Darrius rded National Score (1-100), lower number is lower ri sk 76 09/07/2024 State Score (1-10), lower number is lower risk 6 09/07/2024 Data from: https://www.lizz rodriguez.[facility]/. Last address used for calculation [address] 09/07/2024 Comments Unknown Sex and Gender Information Value Date Recorded Sex Assigned at Not on file Legal Sex Female 4:59 PM EST Gender Identity Not on file Sexual Orientation Not on file documented as of this encounter Plan of Treatment Not on file documented as of this encounter Visit Diagnoses Not on filedocumented in this encounter Care Teams Health Care Marketing Manager Relationship Specialty Start Date End Date Abel Garcia MD [address] [facility] [place] [address] PCP - General Pediatrics 03/12/17 Marina Camara BAG BUILDER [address] [place] [address] Dermatology 08/31/24 documented as of this encounter
--- OUTSIDE RECORDS SUMMARY | 2024-11-28 12:36 | XMS_ITS | Encounter Summary ---
Author Organization [facility] Healthcare Address [address] [place] [address] Care Team Providers Care Exercise Manager Name Role Phone Unallocated, Noms Provider Primary Care Provi chelsea Reason for Referral * Consultation (Routine) - Closed Specialty Diagnoses / Procedures Referred By Madonna najera Referred To Contact Rheumatology Diagnoses Positive SON (antinuclear antibody) Procedures [place] OFFICE/OUTPATIENT NEW HIGH MDM 60 MINUTES Marina Camara APRN-CNP [address] [facility] [address] [place] [address] Phone: tel: fax: Dora Mathur MD [address] [place] [address] Phone: tel: fax: Referral ID Status Reason Start Date Expiration Date V isits Requested Visits Authorized [id number] Closed Specialty Services Required 08/31/2024 02/27/2025 1 1 Reason for Visit * Reason Onset Date Comments Add on lab order 08/24/2024 Encounter Details Date Type Department Care Team (Late st Contact Info) Description 08/24/2024 Results Follow-Up [facility] Dermatology [address] [facility] [address] [place] [address] Marina Camara APRN-CNP [address] [facility] [address] [place] [address] Rash and other nonspecific skin eruption; Positive SON (antinuclear antibody) Social History Tobacco Use Types Packs/Day Years Used Date Smoking Tobacco: Never Smokeless Tobacco: Never Comments Unknown Sex and Gender Information Value Date Recorded Sex Assigned at Female 02/03/2023 10:08 PM EDT Legal Sex Female 10:43 AM EDT Gender Identity Female 02/03/2023 10:08 PM EDT Sexual Orientation Straight 02/03/2023 10 :08 PM EDT documented as of this encounter Miscellaneous Notes * Result Encounter Note - JOHNNA Pinedo - 08/28/2024 11:11 AM EDT Please send patient back to lab. Thanks * Telephone Encounter - Bee Pearson LPN - 08/28/2024 10:28 AM EDT Phone call to [facility] to add on SON titer with reflex (titer pattern analysis) as requested. [facility] states this is from 08/18/2024 and they no longer have the specimen to do add ons. Pt will need to go back to the lab. Marina, do you want pt called and order to be sent? documented in this encounter Plan of Treatment Upcoming Encounters Date Type Department Care Team (Late st Contact Info) Description 12/18/2024 8:40 AM EDT Office Visit [facility] Tanisha JONAS [address] [facility] [place] [address] Tabitha Benítez PA [address] [facility] [address] [place] [address] Scheduled Referrals Name Type Priority Associated Diagnoses Order Schedule Ambulatory referral to Rheumatology Outpatient Referral Routine Positive SON (antinuclear antibody) Expected: 08/31/2024 (Approximate), Expires: 03/03/2025 documented as of this encounter Procedures Procedure Name Priority Date/Time Associated Diagnosis Comments SON BY IFA, REFLEX TO TITER AND PATTERN Routine 08/30/2024 1:04 PM EDT HERNAN STAINING PATTERNS Routine 08/29/2024 2:50 PM EDT SON BY IFA, REFLEX TO TITER AND PATTERN Routine 08/29/2024 2:50 PM EDT Rash and other nonspecific skin eruption documented in this encounter Results * SON by IFA, Reflex to Titer and Pattern (08/30/2024 1:04 PM EDT) SON BY IFA RFX TITER/PATTERN Negative [facility] Comment: Negative <1:80 Borderline 1:80 Positive >1:80 ICAP nomenclature: AC-0 For more information about Hep-2 cell patterns use ANApatterns.org, the official website for the International Consensus on Antinuclear Antibody (SON) Patterns (ICAP). 08/30/2024 1:04 PM EDT 08/30/2024 Comment:BLOOD, VENOUS Narrative [facility] - 09/01/2024 8:07 AM EDT Performed at: 01 - [facility] [id number] Chief Of Production: Arvind Patel PhD, Phone: [phone] us Marina Camara KITCHEN OPERATOR-[employer] LAB BLOOD ORDERABLES F inal Result [facility] [...] Scleroderma-diffuse, Scleroderma-Autoimmune Myositis Overlap Syndrome, Systemic Lupus Adpyhxlmxzdcw-Nlhyuskflpc-Arnuhqmzzv Myositis Overlap Syndrome, Systemic Autoimmune Rheumatic Disease, [...] Antiphospholipid Syndrome 08/29/2024 2:50 PM EDT 08/29/2024 [facility] - 08/31/2024 2:07 PM EDT Performed at: 01 - [facility] [address] [id number] Chief Of Production: Arvind Patel PhD, Phone: [phone] us Marina Camara KITCHEN OPERATOR-DIRECTOR OF CLINICAL EDUCATION LAB BLOOD ORDERABLES F inal Result Performing Organization Address [facility] de Phone Number [facility] * (ABNORMAL) SON by IFA, Reflex to Titer and Pattern (08/29/2024 2:50 PM EDT) SON BY IFA RFX TITER/PATTERN Positive(A ) [facility] Comment: Negative <1:80 Borderline 1:80 Positive >1:80 Blood Venous blood specimen / Unknown 08/29/2024 2:50 PM EDT 08/29/2024 Narrative [facility] - 08/31/2024 2:07 PM EDT Performed at: - [facility] [id number] Chief Of Production: Arvind Patel PhD, Phone: [phone] Marina Camara KITCHEN OPERATOR-DIRECTOR OF CLINICAL EDUCATION LAB BLOOD ORDERABLES F inal Result Performing Organization Address [facility] de Phone Number [facility] documented in this encounter Visit Diagnoses Diagnosis Rash and other nonspecific skin eruption Positive SON (antinuclear antibody) Other and unspecified nonspecific immunological findings documented in this encounter Care Teams Exercise Manager Relationship Specialty Start Date End Date Unallocated, Noms Provider, MD Yamilka [place] [address] PCP - General 02/03/23 documented as of this encounter
--- OUTSIDE RECORDS SUMMARY | 2024-11-28 12:36 | XMS_ITS | Patient Health Record ---
Author Organization [facility] Address [address] [place] [address] Care Team Providers Care Interior Assemblies Developer Prover Name Role Phone Kaushik Yao Primary Care Provider [phone] Carey Unavailable [phone] Rose Espinosa Unavailable [phone] Elpidio Amaya Unavailable [phone] Laura Calvo Unavailable [phone] Arlene Dunn Unavailable [phone] Reason For Referral No Information Encounters Encounter Location Date Provider Diagnosis [facility] [address] [place] [address] 01/16/2024 Kaushik Yao [facility] [address] [place] [address] 12/30/2023 Arleneshelly Dunn Dental caries on pit and fissure surface penetrating into dentin K02.52 [facility] [address] [place] [address] 01/06/2024 Arlene Mona Dental caries on pit and fissure surface penetrating into dentin K02.52 [facility] [address] [place] [address] 03/27/2024 Arlene Pamellaic Dental caries on pit and fissure surface penetrating into dentin K02.52 [facility] [address] [place] [address] 05/01/2024 Arlene Dunn Other dental procedure status Z98.818 and Dental caries on pit and fissure surface penetrating into dentin K02.52 [facility] [address] [place] [address] 12/06/2023 Laura Calvo Arrested dental caries K02.3 and Acute gingivitis, plaque induced K05.00 [facility] [address] [place] [address] 07/14/2024 Rose Espinosa Acute gingivitis, plaque induced K05.00 [facility] [address] [place] [address] 09/25/2024 Arlene Dunn [place] [address] [place] [address] 06/05/2024 Arlene [facility] Necrosis of pulp K04.1 and Dental caries on pit and fissure surface penetrating into dentin K02.52 Assessments Encounter Date Diagnosis (ICD Code) Assessment Notes Treatment Notes Treatment Clinical Notes Section Notes 12/06/2023 Arrested dental caries (ICD-10 - K02.3) 12/30/2023 Dental caries on pit and fissure surface penetrating into dentin (ICD-10 - K02.52) 01/06/2024 Dental caries on pit and fissure surface penetrating into dentin (ICD-10 - K02.52) 03/27/2024 Dental caries on pit and fissure surface penetrating into dentin (ICD-10 - K02.52) 05/01/2024 Other dental procedure status (ICD-10 - Z98.818) 06/05/2024 Necrosis of pulp (ICD-10 - K04.1) 07/14/2024 Acute gingivitis, plaque induced (ICD-10 - K05.00) 06/05/2024 Dental caries on pit and fissure surface penetrating into dentin (ICD-10 - K02.52) 05/01/2024 Dental caries on pit and fissure surface penetrating into dentin (ICD-10 - K02.52) 12/06/2023 Acute gingivitis, plaque induced (ICD-10 - K05.00) Plan Of Treatment Next Appt Details Provider Name:Rose Espinosa , 01/24/2025 08:00:00 AM, [address], [place], [address], Insurance Providers Payer Name Payer Address Payer Phone Subscriber Number Group Number Insured Name Patient Relationship to Insured Coverage Start Date Coverage End Date [employer] [place] [employer] [address] [address] [place] [address] [id number] MARY MATTSON Self - patient is the insured 4 [employer] [facility] [place] [address] [place] [address] [id number] MARY MATTSON Self - patient is the insured 4
== END 2024-11-28 12:31 | disposition home or self-care (01) ==
LOC: PST 12:34
PROVIDERS: Visit Provider Obstetrics & Gynecology
DX: Z01.818 Encounter for other preprocedural examination (principal); R10.2 Pelvic and perineal pain; N83.201 Unspecified ovarian cyst, right side

== ENCOUNTER 2024-12-08 07:52 | Day surgery (SDC) | payer OTHER, SELFPAY ==
[2024-11-28 12:59] VITALS: BP 131/82; PULSE 99; TEMP 36.4; O2SAT 99; BMI 32.2
[2024-12-08] VITALS (11 sets, daily range): BP systolic 105–122; BP diastolic 57–92; PULSE 67–80; TEMP 36–36.5; O2SAT 85–98; BMI 32.2
[2024-12-08 08:05] LABS: Hematocrit 39.2 % (36.0-48.0); Hemoglobin 13.8 g/dL (12.0-16.0); Immature Granulocytes Abs Auto 0.01 10^3/uL (0.00-0.03); Immature Granulocytes Pct Auto 0.2 % (0.0-0.5); Lymphocytes Absolute Auto 2.1 10^3/uL (1.2-3.8); Mean Corpuscular HGB Conc 35.2 g/dL (29.9-35.2); Mean Corpuscular Hemoglobin 29.4 pg (26.7-34.0); Mean Corpuscular Volume 83.6 fL (81.0-99.0); Platelet Count 216 10^3/uL (150-450); Red Blood Count 4.69 10^6/uL (4.20-5.40); White Blood Count 5.4 10^3/uL (4.0-11.0)
--- NOTE | 2024-12-08 10:26 | P.ON_ITS ---
Brief Operative Note Date of procedure: 12/08/24 Pre-op diagnosis general: pelvic pain Post-op diagnosis: same as pre-op Procedure: NAME OF PROCEDURE: [diagnostic laparoscopy ] PROCEDURE: The patient was taken back to the Operating Room where she was placed in dorsal lithotomy position after given general anesthesia. The patient was prepped and draped in normal sterile fashion. A sponge stick was placed into the patient's vagina. Attention was turned to the patient's abdomen, where a small umbilical incision was made. The fascia was tented using Crystal clamps and the fascia was entered sharply. Confirmation of intraabdominal placement of the 10 mm port was confirmed under direct visualization using a laparoscope. The patient's abdomen was then insufflated using CO2 gas with approximately 4 liters. A second port was placed left laterally, this was done under direct visualization with a 5 mm port. Survey of the patient's abdomen demonstrated normal liver and gallbladder. Survey of the patient's pelvic anatomy demonstrated normal appearing rt and lt ovary and tubes as well as normal appearing uterus. No endometrial implants could be noted, no evidence of any pelvic disease was seen, normal appearing pelvic cavity. All instruments were removed from the patient's abdomen. The patient's abdomen was deinsufflated of CO2 gas. The patient tolerated the procedure well. Sponge stick was removed from the patient's vagina. The patient's infraumbilical fascia was closed using #0 Vicryl on a GI needle. The patient's skin was closed laterally and infraumbilically using 4-0 Vicryl. The patient tolerated the procedure well. Sponge, lap and needle counts were correct x 2. The patient was taken to Recovery Room in stable condition. Anesthesia: DIYA Surgeon: Pb Robison Audio/Visual Operator: Eileen Woodard Estimated blood loss (mL): 5 Pathology: none sent Condition: stable Disposition: PACU Urinary Catheter Management Urinary Catheter Management Urethral: Cath placed during this visit: no
== END 2024-12-08 12:17 | disposition home or self-care (01) ==
LOC: SURGOUT 07:53
PROVIDERS: Visit Provider Obstetrics & Gynecology
PROC: (CPT 840; principal; 2024-12-08 08:55)
DX: R10.2 Pelvic and perineal pain (principal); F41.9 Anxiety disorder, unspecified; F32.A Depression, unspecified
CPT/HCPCS: 49320; 36415; 84702; 85025; J0131; J1100; J1171; J1200; J1885; J2405; J2704